=== PATIENT | female | born 1935 | race Two or more races ===

== ENCOUNTER 2021-12-15 21:06 | Inpatient (IN) | payer BC ==
[~2021-12-15] VITALS: Ht 162.6 cm; Wt 46.3 kg
[2021-12-15] MEDS ORDERED: SODIUM CHLORIDE 0.9% 1,000 ML IV ONE (22:45)
[2021-12-16 00:30] LABS: BASOPHILS % 0.4 % (0.0-2.0); EOSINOPHILS % 0.4 % (0.0-5.0); HEMATOCRIT. 36.8 % (36.0-48.0); LYMPHOCYTES % 14.7 % (20.0-50.0); MEAN CORPUSCULAR HEMOGLOBIN 29.2 pg (28.0-32.0); MEAN CORPUSCULAR VOLUME 89.7 fL (81.0-99.0); MONOCYTES % 6.6 % (2.0-8.0); NEUTROPHILS % 77.9 % (40.0-76.0); PLATELET 280 x1000/uL (130-400); RED CELL DISTRIBUTION WIDTH 15.6 % (11.6-14.6)
[2021-12-16 00:39] LABS: CHLORIDE 108 mEq/L (98-107)
[2021-12-16 01:50] LABS: CLARITY URINE CLEAR (CLEAR); COLOR URINE YELLOW (YELLOW); KETONES URINE TRACE (NEGATIVE); LEUKOCYTE ESTERASE URINE NEGATIVE (NEGATIVE); NITRITE URINE NEGATIVE (NEGATIVE); OCCULT BLOOD URINE NEGATIVE (NEGATIVE); PH URINE 5.5 (4.5-8.0); PROTEIN URINE 2+ (NEGATIVE); SPECIFIC GRAVITY URINE 1.024 (1.005-1.030)
[2021-12-16] MEDS ORDERED: ACETAMINOPHEN 325MG TABLET PO PRN (08:45)
[2021-12-16] MEDS ORDERED: ONDANSETRON HCL 4MG/2ML INJ IV PRN (08:45)
[2021-12-16 09:00] VITALS: BP 122/64
[2021-12-16] MEDS ORDERED: ENOXAPARIN 40MG/0.4ML SYR SUBCUT SCH (09:00)
[2021-12-16] MEDS: ASPIRIN 81MG TABLET PO SCH (11:33)
[2021-12-16 12:00] VITALS: BP 145/71
[2021-12-16 16:00] VITALS: BP 151/63
[2021-12-16] MEDS ORDERED: AMLO5TAB4 MT (18:22)
[2021-12-16] MEDS ORDERED: COR12 MT (18:22)
[2021-12-16] MEDS ORDERED: HYDR100T26 MT (18:26)
[2021-12-16] MEDS ORDERED: HYDR100T26 PO (18:26)
[2021-12-16] MEDS ORDERED: ASPI-1079 PO (18:28)
[2021-12-16] MEDS ORDERED: ISOS30TA91 PO (18:30)
[2021-12-16 20:00] VITALS: BP 131/51
[2021-12-17] VITALS (18 sets, daily range): BP systolic 112–156; BP diastolic 60–93
[2021-12-17] MEDS ORDERED: *PATIENT'S OWN MEDICATION STORAGE XX SCH (02:15)
[2021-12-17] MEDS: ASPIRIN 81MG TABLET PO SCH (09:51)
[2021-12-17] MEDS: ISOSORBIDE MONONITRATE 30MG TABLET SR 24HR PO SCH (09:53)
[2021-12-17] MEDS: CARVEDILOL 12.5MG TABLET PO SCH ×2 (09:53→22:53)
[2021-12-17] MEDS ORDERED: MIDAZOLAM HCL 2 MG/2 ML VIAL ONE (14:26)
[2021-12-17] MEDS ORDERED: LIDOCAINE HCL/PF 2% 20MG/ML 5 ML/VIAL ONE (14:27)
[2021-12-17] MEDS ORDERED: FENTANYL CITRATE/PF 50MCG/ML 2ML VIAL ONE (14:27)
[2021-12-17] MEDS ORDERED: HEPARIN 1000 UNITS/ML 10ML ONE (14:27)
[2021-12-17] MEDS ORDERED: IODIXANOL 320MG/ML 100 ML BOTTLE IV ONE (14:30)
[2021-12-17] MEDS ORDERED: VERAPAMIL HCL 2.5 MG/1 ML 2ML VIAL IV ONE (14:34)
[2021-12-17] MEDS ORDERED: ATROPINE SULFATE 1MG/10ML SYR IV PRN (15:15)
[2021-12-17] MEDS ORDERED: ENOXAPARIN 40MG/0.4ML SYR SUBCUT SCH (20:00)
[2021-12-18] VITALS (17 sets, daily range): BP systolic 74–121; BP diastolic 34–63
[2021-12-18 06:17] LABS: BASOPHILS % 0.4 % (0.0-2.0); HEMATOCRIT. 33.3 % (36.0-48.0); HEMOGLOBIN. 10.8 g/dL (12.0-16.0); LYMPHOCYTES % 9.6 % (20.0-50.0); MEAN CORPUSCULAR HEMOGLOBIN 29.8 pg (28.0-32.0); MEAN CORPUSCULAR VOLUME 91.8 fL (81.0-99.0); MEAN PLATELET VOLUME 9.3 fl (7.4-10.4); MONOCYTES % 9.7 % (2.0-8.0); NEUTROPHILS % 80.3 % (40.0-76.0); PLATELET 216 x1000/uL (130-400); RED BLOOD CELL COUNT 3.63 mill/uL (4.2-5.4); RED CELL DISTRIBUTION WIDTH 15.4 % (11.6-14.6)
[2021-12-18] MEDS ORDERED: IODIXANOL 320MG/ML 100 ML BOTTLE IV ONE (07:28)
[2021-12-18] MEDS ORDERED: HEPARIN 1000 UNITS/ML 10ML ONE ×2 (07:28→09:49)
[2021-12-18] MEDS ORDERED: MIDAZOLAM HCL 2 MG/2 ML VIAL ONE (07:29)
[2021-12-18] MEDS ORDERED: FENTANYL CITRATE/PF 50MCG/ML 2ML VIAL ONE (07:29)
[2021-12-18] MEDS ORDERED: LIDOCAINE HCL/PF 2% 20MG/ML 5 ML/VIAL ONE ×2 (07:34)
[2021-12-18] MEDS ORDERED: CLOPIDOGREL 75MG TABLET ONE ×2 (08:49→10:41)
[2021-12-18] MEDS: ISOSORBIDE MONONITRATE 30MG TABLET SR 24HR PO SCH (09:00)
[2021-12-18] MEDS: ASPIRIN 81MG TABLET PO SCH (09:00)
[2021-12-18] MEDS ORDERED: PHENYLEPHRINE 100MCG/ML 10ML VIAL (CATH LAB) ONE (09:23)
[2021-12-18] MEDS ORDERED: NICARDIPINE 100MCG/ML 10ML VIAL (CATH LAB) IV ONE (09:23)
[2021-12-18] MEDS ORDERED: NITROGLYCERIN 50MCG/ML 10ML VIAL (CATH LAB) IV ONE (09:23)
[2021-12-18] MEDS ORDERED: EPTIFIBATIDE 2 MG/ML 10ML VIAL IV ONE ×2 (10:17→13:45)
[2021-12-18] MEDS ORDERED: ASPIRIN 325MG TABLET ONE (10:40)
[2021-12-18] MEDS: CARVEDILOL 12.5MG TABLET PO SCH ×2 (12:30→21:00)
[2021-12-18] MEDS ORDERED: SODIUM CHLORIDE 0.45% 500 ML IV SCH (13:00)
[2021-12-18] MEDS ORDERED: EPTIFIBATIDE 100 ML IV SCH (14:00)
[2021-12-18] MEDS ORDERED: EPTIFIBATIDE 100 ML IV ONE (14:01)
[2021-12-18] MEDS ORDERED: SODIUM CHLORIDE 0.9% 250 ML IV ONE (18:00)
[2021-12-19] VITALS (10 sets, daily range): BP systolic 103–112; BP diastolic 48–58
[2021-12-19 06:26] LABS: BASOPHILS % 0.3 % (0.0-2.0); EOSINOPHILS % 0.1 % (0.0-5.0); HEMATOCRIT. 26.9 % (36.0-48.0); HEMOGLOBIN. 8.9 g/dL (12.0-16.0); LYMPHOCYTES % 10.3 % (20.0-50.0); MEAN CORPUSCULAR HEMOGLOBIN 30.2 pg (28.0-32.0); MEAN CORPUSCULAR VOLUME 91.9 fL (81.0-99.0); MEAN PLATELET VOLUME 8.7 fl (7.4-10.4); MONOCYTES % 10.5 % (2.0-8.0); NEUTROPHILS % 78.8 % (40.0-76.0); PLATELET 208 x1000/uL (130-400); RED BLOOD CELL COUNT 2.93 mill/uL (4.2-5.4); RED CELL DISTRIBUTION WIDTH 15.2 % (11.6-14.6)
[2021-12-19 06:44] LABS: CHLORIDE 111 mEq/L (98-107)
[2021-12-19] MEDS ORDERED: CARVEDILOL 6.25 MG TABLET PO SCH (09:00)
[2021-12-19] MEDS ORDERED: CLOPIDOGREL 75MG TABLET PO SCH (09:00)
[2021-12-19] MEDS: ASPIRIN 81MG TABLET PO SCH (09:13)
[2021-12-19] MEDS ORDERED: CLOP75TA15 PO (12:20)
[2021-12-19 13:06] LABS: HEMATOCRIT. 26.1 % (36.0-48.0); HEMOGLOBIN. 8.5 g/dL (12.0-16.0); MEAN CORPUSCULAR HEMOGLOBIN 30.1 pg (28.0-32.0); MEAN CORPUSCULAR VOLUME 92.6 fL (81.0-99.0); MEAN PLATELET VOLUME 8.2 fl (7.4-10.4); PLATELET 210 x1000/uL (130-400); RED BLOOD CELL COUNT 2.82 mill/uL (4.2-5.4); RED CELL DISTRIBUTION WIDTH 15.5 % (11.6-14.6)
[2021-12-19 18:28] LABS: PLATELET ESTIMATE NORMAL
== END 2021-12-19 16:00 | disposition home or self-care (01) | DRG 246 ==
LOC: EDSEX 21:06 → ER 21:06 → EDBEDREQ 12-16 01:17 → MICUSO 12-16 02:18 → EDBEDREQTM 12-16 02:34 → 7WST 12-16 08:27 → 5EST 12-17 15:50
PROVIDERS: ADMIT Internal Medicine; ATTEND Internal Medicine
PROC: 4A023N7 Measurement of Cardiac Sampling and Pressure, Left Heart, Percutaneous Approach (ICD-10-PCS; 2021-12-17)
PROC: B211YZZ Fluoroscopy of Multiple Coronary Arteries using Other Contrast (ICD-10-PCS; 2021-12-17)
PROC: 027136Z Dilation of Coronary Artery, Two Arteries with Three Drug-eluting Intraluminal Devices, Percutaneous Approach (ICD-10-PCS; principal; 2021-12-18)
DX: I21.4 Non-ST elevation (NSTEMI) myocardial infarction (principal); G93.41 Metabolic encephalopathy; I50.21 Acute systolic (congestive) heart failure; E44.1 Mild protein-calorie malnutrition; Z68.1 Body mass index [BMI] 19.9 or less, adult; I11.0 Hypertensive heart disease with heart failure; I25.10 Atherosclerotic heart disease of native coronary artery without angina pectoris; E87.8 Other disorders of electrolyte and fluid balance, not elsewhere classified; F03.90 Unspecified dementia, unspecified severity, without behavioral disturbance, psychotic disturbance, mood disturbance, and anxiety; Z95.0 Presence of cardiac pacemaker; Z20.822 Contact with and (suspected) exposure to COVID-19
CPT/HCPCS: 36415; 71045; 80048; 80053; 81003; 83605; 83880; 84484; 85025; 87426; 92928; 92929; 92978; 93005; 93306; 93454; 93458; 99285; C1725; C1753; C1760; C1769; C1874 ×2; C1887; C1893; C1894; J1327; J1644; J1650; J2250; J2370; J3010; J3490; J7030; Q9967; A4315